=== PATIENT | female | born 1950 | race Hispanic/Latino ===

== ENCOUNTER 2016-09-14 07:50 | Day surgery (SDC) | payer MEDICARE, OTHER ==
[2016-09-05 10:46] VITALS: BMI 30.2
[2016-09-14] MEDS ORDERED: Lactated Ringer's 1,000 ML IV SCH (10:30)
[2016-09-14] MEDS ORDERED: Propofol 10 mg/ml Inj (20 ML) ONE (11:32)
[2016-09-14 13:04] VITALS: PULSE 61
[2016-09-14 14:22] VITALS: BP 128/80; RESP 18; TEMP 97.8; O2SAT 98
== END 2016-09-14 14:09 | disposition home or self-care (01) ==
LOC: ENDO 07:50
PROVIDERS: ATTEND Internal Medicine Gastroenterology
DX: K57.30 Diverticulosis of large intestine without perforation or abscess without bleeding (principal); K29.50 Unspecified chronic gastritis without bleeding; K21.9 Gastro-esophageal reflux disease without esophagitis; K64.8 Other hemorrhoids; K59.00 Constipation, unspecified; M35.00 Sjogren syndrome, unspecified; I10 Essential (primary) hypertension; J44.9 Chronic obstructive pulmonary disease, unspecified; Z98.84 Bariatric surgery status
CPT/HCPCS: 43239; 45378; 88305; 88342; J2001; J2704; J3010; J7040; J7120

== ENCOUNTER 2017-08-16 13:10 | Emergency (ER) | payer MEDICARE, OTHER ==
--- NOTE | 2017-08-16 13:26 | ED PDOC ---
Arrival/HPI - General Time Seen by Provider: 08/16/17 13:17 Historian: Patient - History of Present Illness Narrative History of Present Illness (Text): 08/16/17 13:28 67 year old female, with past medical history of COPD, coccygeal contusion, complete left lung resection and cardiomegaly, presents to the Emergency department complaining of mid-sternal chest discomfort half an hour prior to arrival. Patient informs a burning sensation in the middle of her chest accompanied by chest pressure and radiation to all her extremities. As per patient, the episode lasted for 10 minutes soon following into diaphoresis, headache and nausea. Patient informs similar symptom in the past without any medical explanation. Patient is currently asymptomatic and denies any complaints. Patient currently denies any fever, chills, nausea, vomiting, diarrhea, abdominal pain, chest pain, shortness of breath or any other complaints. PMD: Dr. 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 Stomach reconstruction 1997. Hiatel Hernia - Psychiatric Hx Emotional Abuse: No Hx Physical Abuse: No Hx Substance Use: No - Surgical History Hx Appendectomy: Yes - Anesthesia Hx Anesthesia Reactions: No Hx Malignant Hyperthermia: No - Suicidal Assessment Feels Threatened In Home Enviroment: No Family/Social History - Physician Review Nursing Documentation Reviewed: Yes Family/Social History: Unknown Family HX Smoking Status: Former Smoker Hx Alcohol Use: Yes (MODERATE PER PT) Hx Substance Use: No Hx Substance Use Treatment: No Allergies/Home Meds Allergies/Adverse Reactions: Allergies Sulfa (Sulfonamide Antibiotics) Allergy (Verified 09/14/16 08:26) ANAPHYLAXIS SULFATES IN FOOD Allergy (Uncoded 09/05/16 10:46) FEVER Home Medications: Home Meds Medication Instructions Recorded Confirmed Esomeprazole Magnesium [Nexium] 40 mg PO DAILY 10/13/14 09/14/16 amLODIPine [Norvasc] 10 mg PO DAILY 10/13/14 09/14/16 Diclofenac Sodium [Voltaren] 100 gm TP DAILY 09/05/16 09/14/16 Melatonin [Melatin] 3 mg PO HS 09/05/16 09/14/16 Metoprolol Succinate 50 mg PO DAILY 09/05/16 09/14/16 Pilocarpine [Salagen Tab] 5 mg PO DAILY 09/05/16 09/14/16 Tiotropium Br/Olodaterol HCl 4 gm IH DAILY 09/05/16 09/14/16 [Stiolto Respimat Inhal [place]] Topiramate [Topamax] 15 mg PO DAILY 09/05/16 09/14/16 traMADol [Ultram] 25 mg PO DAILY PRN 09/05/16 09/14/16 Review of Systems - Physician Review All systems were reviewed & negative as marked: Yes - Review of Systems Constitutional: Normal. absent: Fevers Eyes: Normal ENT: Normal Respiratory: Normal. absent: SOB Cardiovascular: Chest Pain Gastrointestinal: Normal. absent: Abdominal Pain, Diarrhea, Nausea, Vomiting Genitourinary Female: Normal Musculoskeletal: Normal Skin: Normal Neurological: Normal Endocrine: Normal Hemo/Lymphatic: Normal Psychiatric: Normal Physical Exam Vital Signs Reviewed: Yes Vital Signs Temp Pulse Resp BP Pulse Ox 08/16/17 15:00 65 18 121/74 98 08/16/17 13:35 98.2 F 68 18 123/87 98 Temperature: Afebrile Blood Pressure: Normal Pulse: Regular Respiratory Rate: Normal Appearance: Positive for: Well-Appearing (obsese, asymptomatic), Non-Toxic, Comfortable Pain Distress: None Mental Status: Positive for: Alert and Oriented X 3 - Systems Exam Head: Present: Atraumatic, Normocephalic Pupils: Present: PERRL Extroacular Muscles: Present: EOMI Conjunctiva: Present: Normal Mouth: Present: Moist Mucous Membranes Neck: Present: Normal Range of Motion Respiratory/Chest: Present: Clear to Auscultation, Good Air Exchange, Other (no reproducible chest wall tenderness). No: Respiratory Distress, Accessory Muscle Use Cardiovascular: Present: Regular Rate and Rhythm, Normal S1, S2. No: Murmurs Abdomen: Present: Normal Bowel Sounds. No: Tenderness, Distention, Peritoneal Signs Back: Present: Normal Inspection Upper Extremity: Present: Normal Inspection. No: Cyanosis, Edema Lower Extremity: Present: Normal Inspection. No: Edema Neurological: Present: GCS=15, CN II-XII Intact, Speech Normal Skin: Present: Warm, Dry, Normal Color. No: Rashes Psychiatric: Present: Alert, Oriented x 3, Normal Insight, Normal Concentration Medical Decision Making ED Course and Treatment: 08/16/17 13:47 Impression: 67 year old female presents to the Emergency department for a sudden episode of chest discomfort. Plan: -- EKG -- Chest X-ray -- Labs -- Reassess and disposition Progress Notes: 08/16/2017 15:37 Chest X-ray IMPRESSION: Clear right lung. Status post left laminectomy. Dictator: Che Byers MD - Lab Interpretations Lab Results: 08/16/17 15:20 08/16/17 15:20 Lab Results 08/16/17 15:20: D-Dimer, Quantitative 364 H 08/16/17 15:20: Sodium 141, Potassium 4.9, Chloride 104, Carbon Dioxide 25, Anion Gap 17, BUN 12, Creatinine 1.0, Est GFR ( Amer) > 60, Est GFR (Non- Af Amer) 55, Random Glucose 97, Calcium 9.6, Total Bilirubin 0.8, AST 56 H, ALT 40, Alkaline Phosphatase 248 H, Troponin I 0.02 D, Total Protein 7.5, Albumin 4.1, Globulin 3.4, Albumin/Globulin Ratio 1.2 08/16/17 15:20: WBC 5.3, RBC 5.10, Hgb 15.8, Hct 47.3, MCV 92.7, MCH 31.0, MCHC 33.4, RDW 15.6 H, Plt Count 150, MPV 8.9, Gran % 51.5, Lymph % (Auto) 31.8, [place] % (Auto) 12.7 H, Eos % (Auto) 3.2, Baso % (Auto) 0.8, Gran # 2.73, Lymph # (Auto) 1.7, [place]erry # (Auto) 0.7 H, Eos # (Auto) 0.2, Baso # (Auto) 0.04 I have reviewed the lab results: Yes - RAD Interpretation Radiology Orders: 08/16/17 14:04 CHEST PORTABLE [RAD] Stat 08/16/17 16:56 ANGIO CHEST PE PROTOCOL [CT] Stat - Scribe Statement The provider has reviewed the documentation as recorded by the Scribe Eugene Portillo. All medical record entries made by the Scribe were at my direction and personally dictated by me. I have reviewed the chart and agree that the record accurately reflects my personal performance of the history, physical exam, medical decision making, and the department course for this patient. I have also personally directed, reviewed, and agree with the discharge instructions and disposition. Disposition/Present on Arrival - Present on Arrival Any Indicators Present on Arrival: No History of DVT/PE: No History of Uncontrolled Diabetes: No Urinary Catheter: No History Surgical Site Infection Following: None - Disposition Have Diagnosis and Disposition been Completed?: Yes Diagnosis: Chest pain Disposition: HOME/ ROUTINE Disposition Time: 18:30 Patient Plan: Discharge Condition: IMPROVED Discharge Instructions (ExitCare): Chest Pain (ED) Additional Instructions: See your doctor for further evaluation. Referrals: Mendoza Vargas MD [Primary Care Provider] - Follow up with primary
[2017-08-16 13:35] VITALS: TEMP 98.2; BMI 32.1
[2017-08-16 15:39] LABS: BASO # 0.04 K/mm3 (0.0-2.0); BASO % 0.8 % (0.0-3.0); EOS # 0.2 (0.0-0.7); EOS % 3.2 % (1.5-5.0); GRAN # 2.73 (1.4-6.5); GRAN % 51.5 % (50.0-68.0); HEMOGLOBIN 15.8 g/dL (12.0-16.0); LYMPH # 1.7 (1.2-3.4); LYMPH % 31.8 % (22.0-35.0); MEAN CELL VOLUME 92.7 fl (80.0-105.0); MEAN CORPUSCULAR HGB CONC 33.4 g/dl (31.0-37.0); MEAN PLATELET VOLUME 8.9 fl (7.0-11.0); MONO # 0.7 (0.1-0.6); MONO % 12.7 % (1.0-6.0); RBC 5.1 10^6/uL (3.5-6.1); RED CELL DISTRIBUTION WIDTH 15.6 % (11.5-14.5); WHITE BLOOD COUNT 5.3 10^3/ul (4.5-11.0)
--- NOTE | 2017-08-16 15:39 | RAD ---
HISTORY: Chest pain COMPARISON: 02/07/2015. FINDINGS: The right MediPort terminates in the SVC. LUNGS: The right lung is well inflated and clear. There is complete opacification of the left hemithorax related to prior laminectomy. PLEURA: No significant pleural effusion identified, no pneumothorax apparent. CARDIOVASCULAR: Normal. OSSEOUS STRUCTURES: No significant abnormalities. VISUALIZED UPPER ABDOMEN: Normal. OTHER FINDINGS: None. IMPRESSION: Clear right lung. Status post left laminectomy.
[2017-08-16 15:43] LABS: ALB/GLOB RATIO 1.2 (1.1-1.8); ALBUMIN 4.1 g/dL (3.0-4.8); ALT/SGPT 40 U/L (7-56); AST/SGOT 56 U/L (14-36); BLOOD UREA NITROGEN 12 mg/dL (7-21); CALCIUM 9.6 mg/dL (8.4-10.5); GFR AFRICAN-AMERICAN > 60; GFR NON-AFRICAN AMERICAN 55
[2017-08-16 15:53] LABS: TROPONIN I 0.02 ng/mL
[2017-08-16] MEDS ORDERED: Iohexol 350 MG/100 ML VIAL ONE (17:09)
--- NOTE | 2017-08-16 18:02 | CT ---
PROCEDURE: CT Chest with contrast (Pulmonary Angiogram) HISTORY: Chest pain. Relevant surgical history: Resection of left lung for lung cancer COMPARISON: 05/30/2015 CT thorax abdomen and pelvis TECHNIQUE: Axial computed tomography images were obtained of the chest in the pulmonary arterial phase of enhancement. Coronal and sagittal reformatted images were created and reviewed. Maximum intensity projection (MIP) reconstructed images in the following planes: Sagittal and axial projections. Intravenous contrast dose: 70 cc Omnipaque 350 Mean Hounsfield unit values in the main pulmonary artery: 319.51 Radiation dose: Total exam DLP = 414.88 mGy-cm. This CT exam was performed using one or more of the following dose reduction techniques: Automated exposure control, adjustment of the mA and/or kV according to patient size, and/or use of iterative reconstruction technique. FINDINGS: PULMONARY ARTERIES: Unremarkable. No pulmonary embolism. AORTA: No acute findings. No thoracic aortic aneurysm. LUNGS: Right lung: Unremarkable. No nodule, mass or pulmonary consolidation. Compensatory expansion secondary to resection of the left lung PLEURAL SPACES: Expected postoperative findings in the left pleural space with resort haines of fluid compared to the prior CT scan from May 2015. HEART: Unremarkable. No cardiomegaly. No significant pericardial effusion. LYMPH NODES: No lymphadenopathy. BONES, CHEST WALL: Unremarkable. No fracture or destructive lesion OTHER FINDINGS: Small hiatal hernia. Incompletely visualized findings related to bariatric surgery. IMPRESSION: Status post left pneumonectomy. Expected postoperative findings. No evidence of pulmonary embolism. Additional benign and/or incidental findings described above.
[2017-08-16 18:49] VITALS: BP 128/94; PULSE 70; RESP 16; O2SAT 97
--- NOTE | 2017-08-17 09:57 | CARD ---
APPROVED REPORT EKG Measurement Heart [id number] <Conclusion> Normal sinus rhythm Q in 3 PRWP V 1 - 6, possible lead placement, R/O anterior DE, age unknown NSSTW changes
== END 2017-08-16 18:43 | disposition home or self-care (01) ==
LOC: ED 13:10
DX: R07.9 Chest pain, unspecified (principal)
CPT/HCPCS: 71045; 71275; 80053; 84484; 85025; 85378; 93005; 99284; Q9967

== ENCOUNTER 2018-07-29 09:29 | Outpatient (CLI) | payer MEDICARE, OTHER | END 2018-07-29 09:30 | disposition home or self-care (01) | LOC: LAB 09:29 ==

== ENCOUNTER 2018-08-15 08:09 | Day surgery (SDC) | payer MEDICARE, OTHER ==
[2018-08-13 12:47] VITALS: BMI 32.3
[2018-08-15] MEDS ORDERED: Bupivacaine 0.5% 50 ML IJ ONE ×2 (08:58→09:56)
[2018-08-15] MEDS ORDERED: Lidocaine 1% w Epi 1:100,000 Inj ONE (08:58)
[2018-08-15] MEDS ORDERED: Midazolam 2 MG/2 ML VIAL ONE (10:00)
[2018-08-15] MEDS ORDERED: Propofol 10 mg/ml Inj (20 ML) ONE (10:00)
[2018-08-15] MEDS ORDERED: Rocuronium 10 mg/ml (5 ml) ONE (10:21)
[2018-08-15] MEDS ORDERED: Albuterol HFA 90 mcg/actuation (8 g) ONE (10:58)
[2018-08-15] MEDS ORDERED: Neostigmine Methylsulfate 3mg/3ml Syringe IV ONE (11:41)
[2018-08-15] MEDS ORDERED: Glycopyrrolate 0.2 mg/ml (2ml vial) ONE (11:41)
[2018-08-15] MEDS ORDERED: Esmolol 100 mg/10ml Inj IV ONE ×3 (13:12→13:15)
[2018-08-15] MEDS ORDERED: ePHEDrine 50 mg/ml Inj ONE (13:12)
[2018-08-15] MEDS ORDERED: Oxycodone/Acetaminophen 5/325 mg Tab PO PRN (13:28)
--- NOTE | 2018-08-15 13:28 | PCM.SURG1 ---
Surgeon's Initial Post Op Note - Surgeon's Notes Surgeon: Sharifa Crouch MD Night Filler: Selene Monge PA-C Type of Anesthesia: General Endo Anesthesia Administered By: Dr. Brooks Pre-Operative Diagnosis: left shoulder rotator cuff and labral tear Operative Findings: see full note Post-Operative Diagnosis: left shoulder RC tear, labral tear, GH and AC osteoarthritis Operation Performed: left shoulder arthroscopy with rotator cuff repair and subacromial decompression Specimen/Specimens Removed: none Estimated Blood Loss: EBL {In ML}: 2 Blood Products Given: N/A Drains Used: No Drains Post-Op Condition: Poor (patient placed on ventilation and moved to PACU.) Date of Surgery/Procedure: 08/15/18 Time of Surgery/Procedure: 13:27
[2018-08-15] MEDS ORDERED: Lactated Ringer's 1,000 ML IV SCH (13:45)
--- NOTE | 2018-08-15 16:21 | PCM.ANESB1 ---
Interscalene Block - Brachial Plexus Date of Procedure: 08/15/18 Anesthesiologist: Todd Pre-Procedure Diagnosis: s/p left shoulder arthroscopy Procedure Performed: Interscalene Block of Brachial Plexus Left - Procedure Interscalene Block of Brachial Plexus: 1600 - 1615, left brachial plexus block, interscalene approach, done in PACU for post-op pain relief. Under sterile conditions, ultrasound guidance, 20 cc 0.5% bupivacaine injected in 5 cc increments, negative aspiration throughout. VSS, patient tolerated procedure well. Block requested by surgeon, Dr. Crouch.
[2018-08-15 17:14] VITALS: PULSE 83; RESP 18; TEMP 97; O2SAT 95
[2018-08-15 19:12] VITALS: BP 138/84
--- NOTE | 2018-08-15 23:32 | OP ---
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 PROCEDURE: Left shoulder arthroscopy with arthroscopic cuff repair, subacromial decompression, and debridement. SURGEON: Jerel Crouch MD SLIDE FASTENER REPAIRER: Dr. Crouch was assisted by Morena Monge, physician assistant chief train dispatcher. Ms. Monge was scrubbed and present throughout the entire case and assisted in patient positioning, manipulation of the arthroscope during the repair as well as closure. ANESTHESIA: General. COMPLICATIONS: None. ESTIMATED BLOOD LOSS: 10 mL. INDICATIONS FOR PROCEDURE: This is a 68-year-old female with longstanding left shoulder pain. Clinical examination was consistent with pain and weakness with resisted forward flexion and abduction and positive Elise sign. MRI examination was consistent with what appeared to be a chronic full-thickness retracted tear of the supraspinatus. After a period of failed nonsurgical management, recommendations were for a left shoulder arthroscopy. The risks and benefits were discussed with the patient including the possibility of irreparable tear, the possibility of only a partial repair as well as the need for a later surgery including shoulder arthroplasty. The risks and benefits were discussed with the patient and informed consent was obtained. DESCRIPTION OF PROCEDURE: After the surgical site was signed and verified in the preoperative holding area, the patient was taken to the operating room and placed supine on the operating room table. After administration of general anesthesia, the patient received 2 g of Ancef. The patient was positioned in the lateral decubitus position with the left shoulder up towards the ceiling. Care was taken to make sure all bony prominences and nerves were well padded and protected. Venodyne boots were placed on bilateral lower extremities. Axillary roll was placed into the right axilla and the left upper extremity was prepped and draped in the usual sterile fashion. The bony landmarks were identified about the left shoulder and all portal sites were injected with a total of 10 mL of 1% lidocaine with epinephrine. Posterior arthroscopy portal was established and the arthroscope was inserted into the glenohumeral joint. The chondral surfaces of the glenoid were noted to have grade II to grade III changes. Under direct arthroscopic visualization, the anterior rotator interval was identified and anterior port was established. Anterior labrum was probed and was noted to have significant amount of degenerative tearing. The tissue quality appeared to be very poor, and at this point, decision was made to just debride the tissue. Once this was done, a very little viable tissue remained. So, decision was made not to do a formal repair. The inferior and posterior labrum appeared to be intact. The biceps tendon appeared to be well situated in the intertubercular groove and appeared to be intact. The subscapularis was visualized and also appeared to be intact. The patient was noted to have a full-thickness tear of the supraspinatus and the free margin of the supraspinatus appeared to be retracted just medial to the edge of the glenoid. No loose bodies were appreciated. At this point, the arthroscope was Inserted into the subacromial space and a bursectomy was performed, which gave an excellent visualization of the undersurface of the acromion as well as the rotator cuff tear. Using the shaver in a charlee-like fashion, acromioplasty was performed. Next, our attention was directed to the tear. Using a [place] elevator, attempt was made to free up any adhesions along the superoinferior margin of the tendon, and once this was done, a tissue grasper was used, again the tissue quality was noted to be extremely poor, but portion of the tendon could be mobilized to the junction of the articular surface and the footprint. At this point, the most medial aspect of the footprint was debrided and using a suture-passing device, three Vargas and Nephew suture tapes were passed in a mattress-like fashion to the free margin of the supraspinatus. The limbs of these sutures were then loaded into two knotless anchors. The knotless anchors were then impacted into the footprint, which brought the tendon down to the footprint. Once this was done, the tendon repair site was probed and was noted to be stable. In the anterior portion, there was no coverage anteriorly because of deficient tissue, and at this point, all instruments were removed and all portals were closed using 2-0 Vicryl suture and 3-0 nylon. A sterile dressing was applied and abduction pillow sling was placed. The patient was awakened from the anesthesia and taken to the recovery room in stable condition. Jerel Crouch MD [facility] # [id number]
== END 2018-08-15 18:00 | disposition home or self-care (01) ==
LOC: SDS 08:09
PROVIDERS: ATTEND Orthopaedic Surgery
DX: M75.102 Unspecified rotator cuff tear or rupture of left shoulder, not specified as traumatic (principal); M19.012 Primary osteoarthritis, left shoulder; J44.9 Chronic obstructive pulmonary disease, unspecified
CPT/HCPCS: 29826; 29827; C1713; J0131; J0171; J0690; J2001; J2250; J2405; J2704; J2710; J2765; J3010 ×2; J7120